=== PATIENT | male | born 1990 | race Caucasian/White ===

== ENCOUNTER 2016-12-12 09:32 | Emergency (ER) | payer MEDICAID ==
[~2016-12-12] VITALS: Ht 175.3 cm; Wt 86.0 kg
[2016-12-12 09:33] VITALS: BP 132/74; PULSE 86; RESP 20; TEMP 97.9; O2SAT 100
--- NOTE | 2016-12-12 10:12 | PD ---
HPI Chief Complaint: Chest Pain Time Seen by Provider: 10:01 Travel History International Travel<30 days: No Contact w/Intl Traveler<30days: No Traveled to known affect area: No History of Present Illness HPI The patient is a 26-year-old male who presents emergency department for chest pain. The patient notes a 2 week history of left-sided chest pain is located over the left breast and lower rib cage, sharp, intermittent, shooting, radiates to the posterior aspect of the left mid back. The patient states the pain is worse with inspiration, coughing, and occasional movements. Patient did have nausea and vomiting several days ago which has resolved. He does have a previous history of mononucleosis, denies any known history of chronic splenomegaly. The patient denies any trauma to the left chest wall. He denies any fever, chills, or sweats. The patient notes a possible history of borderline hypertension, however, denies any history of hyperlipidemia, diabetes , early family medical history for heart disease. The patient chews tobacco, however, does not smoke tobacco. Symptoms are moderate, worse with inspiration , coughing, and movement, and there are no current alleviating factors. PFSH Past Medical History Anxiety: Yes (PTSD) Hypertension: Yes Social History Alcohol Use: Yes (rare) Tobacco Use: No (just quit, smoked very rare) Substance Use: Yes (marijuana, last used in october ) Allergies-Medications (Allergen,Severity, Reaction): Coded Allergies: No Known Allergies (Unverified , 12/12/16) Reported Meds & Prescriptions Reported Meds & Active Scripts Active No Active Prescriptions or Reported Medications Review of Systems Except as stated in HPI: all other systems reviewed are Neg General / Constitutional: No: Fever Cardiovascular: Positive: Chest Pain or Discomfort Respiratory: Positive: Shortness of Breath, Pleuritic Pain (with inspiration), No: Cough Gastrointestinal: Positive: Nausea, Vomiting (2 days ago which has resolved) Skin: No Rash Physical Exam Narrative GENERAL: Awake, alert, 26-year-old male who appears his stated age and is in no acute respiratory distress. SKIN: Focused skin assessment warm/dry. HEAD: Atraumatic. Normocephalic. EYES: Pupils equal and round. No scleral icterus. No injection or drainage. ENT: No nasal bleeding or discharge. Mucous membranes pink and moist. NECK: Trachea midline. No JVD. CARDIOVASCULAR: Regular rate and rhythm. No murmur appreciated. Heart rate in the 80s. Palpation of the left lower chest wall reproduces symptoms. RESPIRATORY: No accessory muscle use. Clear to auscultation. Breath sounds equal bilaterally. GASTROINTESTINAL: Abdomen soft, mild tenderness over left upper quadrant, but no obvious splenomegaly. Back: No CVA tenderness. MUSCULOSKELETAL: No obvious deformities. No clubbing. No cyanosis. No edema. NEUROLOGICAL: Awake and alert. No obvious cranial nerve deficits. Motor grossly within normal limits. Normal speech. PSYCHIATRIC: Appropriate mood and affect; insight and judgment normal. Data Data Last Documented VS Vital Signs Date Time Temp Pulse Resp B/P Pulse Ox O2 Delivery O2 Flow Rate FiO2 12/12/16 11:14 20 12/12/16 10:17 100 Room Air 12/12/16 09:33 97.9 86 132/74 Orders Electrocardiogram (12/12/16 ) Electrocardiogram (12/12/16 10:07) Ckmb (Isoenzyme) Profile (12/12/16 10:07) Complete Blood Count With Diff (12/12/16 10:07) Comprehensive Metabolic Panel (12/12/16 10:07) D-Dimer (12/12/16 10:07) Magnesium (Mg) (12/12/16 10:07) Prothrombin Time / Inr (Pt) (12/12/16 10:07) Act Partial Throm Time (Ptt) (12/12/16 10:07) Troponin I (12/12/16 10:07) Lipase (12/12/16 10:07) Chest, Single Ap (12/12/16 10:07) Ecg Monitoring (12/12/16 10:07) Bilateral Bp Monitoring (12/12/16 10:07) Iv Access Insert/Monitor (12/12/16 10:07) Oximetry (12/12/16 10:07) Oxygen Administration (12/12/16 10:07) Morphine Inj (Morphine Inj) (12/12/16 10:15) Sodium Chloride 0.9% Flush (Ns Flush) (12/12/16 10:15) Sodium Chlorid 0.9% 500 Ml Inj (Ns 500 M (12/12/16 10:15) Ketorolac Inj (Toradol Inj) (12/12/16 10:15) Ondansetron Inj (Zofran Inj) (12/12/16 10:15) CKMB (12/12/16 10:20) CKMB% (12/12/16 10:20) Ct Pulmonary Angiogram (12/12/16 ) Iohexol 350 Inj (Omnipaque 350 Inj) (12/12/16 11:55) Labs Laboratory Tests Test 12/12/16 10:20 White Blood Count 11.1 TH/MM3 Red Blood Count 5.08 MIL/MM3 Hemoglobin 15.4 GM/DL Hematocrit 44.6 % Mean Corpuscular Volume 87.8 FL Mean Corpuscular Hemoglobin 30.4 PG Mean Corpuscular Hemoglobin 34.6 % Concent Red Cell Distribution Width 14.6 % Platelet Count 288 TH/MM3 Mean Platelet Volume 8.1 FL Neutrophils (%) (Auto) 68.7 % Lymphocytes (%) (Auto) 24.0 % Monocytes (%) (Auto) 5.9 % Eosinophils (%) (Auto) 0.8 % Basophils (%) (Auto) 0.6 % Neutrophils # (Auto) 7.6 TH/MM3 Lymphocytes # (Auto) 2.6 TH/MM3 Monocytes # (Auto) 0.7 TH/MM3 Eosinophils # (Auto) 0.1 TH/MM3 Basophils # (Auto) 0.1 TH/MM3 CBC Comment DIFF FINAL Differential Comment Prothrombin Time 10.4 SEC Prothromb Time International 0.9 RATIO Ratio Activated Partial 27.9 SEC Thromboplast Time D-Dimer Quantitative (PE/DVT) 0.96 MG/L FEU Sodium Level 138 MEQ/L Potassium Level 4.2 MEQ/L Chloride Level 101 MEQ/L Carbon Dioxide Level 25.9 MEQ/L Anion Gap 11 MEQ/L Blood Urea Nitrogen 14 MG/DL Creatinine 1.12 MG/DL Estimat Glomerular Filtration 81 ML/MIN Rate Random Glucose 80 MG/DL Calcium Level 9.5 MG/DL Magnesium Level 2.3 MG/DL Total Bilirubin 0.8 MG/DL Aspartate Amino Transf 22 U/L (AST/SGOT) Alanine Aminotransferase 28 U/L (ALT/SGPT) Alkaline Phosphatase 98 U/L Total Creatine Kinase 301 U/L Creatine Kinase MB 1.8 NG/ML Troponin I LESS THAN 0.02 NG/ML Total Protein 8.2 GM/DL Albumin 4.4 GM/DL Lipase 92 U/L [facility] Medical Decision Making Medical Screen Exam Complete: Yes Emergency Medical Condition: Yes Medical Record Reviewed: Yes Interpretation(s) EKG reveals sinus rhythm with sinus arrhythmia. Rate 67. No ischemic changes noted. Last Impressions Chest X-Ray 12/12/16 1007 Signed Impressions: Service Date/Time: Monday, December 12, 2016 10:19 - CONCLUSION: Normal examination. Keny Castro Jr., MD CT Angiography 12/12/16 0000 Signed Impressions: Service Date/Time: Monday, December 12, 2016 11:47 - CONCLUSION: Normal examination. Keny Castro Jr., MD Laboratory Tests Test 12/12/16 10:20 White Blood Count 11.1 TH/MM3 Red Blood Count 5.08 MIL/MM3 Hemoglobin 15.4 GM/DL Hematocrit 44.6 % Mean Corpuscular Volume 87.8 FL Mean Corpuscular Hemoglobin 30.4 PG Mean Corpuscular Hemoglobin 34.6 % Concent Red Cell Distribution Width 14.6 % Platelet Count 288 TH/MM3 Mean Platelet Volume 8.1 FL Neutrophils (%) (Auto) 68.7 % Lymphocytes (%) (Auto) 24.0 % Monocytes (%) (Auto) 5.9 % Eosinophils (%) (Auto) 0.8 % Basophils (%) (Auto) 0.6 % Neutrophils # (Auto) 7.6 TH/MM3 Lymphocytes # (Auto) 2.6 TH/MM3 Monocytes # (Auto) 0.7 TH/MM3 Eosinophils # (Auto) 0.1 TH/MM3 Basophils # (Auto) 0.1 TH/MM3 CBC Comment DIFF FINAL Differential Comment Prothrombin Time 10.4 SEC Prothromb Time International 0.9 RATIO Ratio Activated Partial 27.9 SEC Thromboplast Time D-Dimer Quantitative (PE/DVT) 0.96 MG/L FEU Sodium Level 138 MEQ/L Potassium Level 4.2 MEQ/L Chloride Level 101 MEQ/L Carbon Dioxide Level 25.9 MEQ/L Anion Gap 11 MEQ/L Blood Urea Nitrogen 14 MG/DL Creatinine 1.12 MG/DL Estimat Glomerular Filtration 81 ML/MIN Rate Random Glucose 80 MG/DL Calcium Level 9.5 MG/DL Magnesium Level 2.3 MG/DL Total Bilirubin 0.8 MG/DL Aspartate Amino Transf 22 U/L (AST/SGOT) Alanine Aminotransferase 28 U/L (ALT/SGPT) Alkaline Phosphatase 98 U/L Total Creatine Kinase 301 U/L Creatine Kinase MB 1.8 NG/ML Troponin I LESS THAN 0.02 NG/ML Total Protein 8.2 GM/DL Albumin 4.4 GM/DL Lipase 92 U/L Differential Diagnosis Differential diagnosis includes pleurisy, pleural effusion, pneumonia, pulmonary embolism, pancreatitis, acute coronary syndrome, pericarditis, myocarditis, splenomegaly Narrative Course IV was established, labs are drawn and sent, and the patient was placed on cardiac telemetry monitoring and continuous pulse oximetry monitoring. EKG was ordered and interpreted. Chest x-ray was obtained. The patient was administered morphine, Zofran, Toradol, and IV fluids. D-dimer was sent to lab. Chest x-ray was negative. D-dimer was positive at 0.96, therefore, CT pulmonary angiogram was ordered. CT pulmonary injury gram was negative, no evidence of pulmonary embolism. Patient's troponin is negative. EKG reveals no evidence of pericarditis. The patient appears to have atypical chest pain secondary to pleurisy. The patient we placed on a Medrol Dosepak and pain medications. He is advised to follow-up with his primary physician. Return if symptoms worsen or progress. Diagnosis Primary Impression: Atypical chest pain Additional Impression: Pleurisy Patient Instructions: Narcotic given in the ED, General Instructions Additional Instructions: Medications as directed. Follow-up with your primary physician. Return if symptoms worsen or progress. Please provide the patient a copy of his CT results, lab results, and chest x-ray results at discharge. Med/Other Pt SpecificInfo: Prescription(s) given Scripts Hydrocodone-Acetaminophen ([place])5-325 mg Tab1 Tab PO Q6H PRN (PAIN) #15 TAB Ref 0 Prov:Josh Leiva MD 12/12/16 Methylprednisolone Dosepak (Medrol Dosepak)4 Mg Dspk4 Mg PO DIRECTED #1 DSPK Ref 0 Per Pharmacist direction Prov:Josh Leiva MD 12/12/16 Disposition: DISCHARGE HOME Condition: Stable Josh Leiva MD December 12, 2016 10:12
[2016-12-12] MEDS ORDERED: ONDANSETRON HCL 4 MG/2 ML VIAL IV PUSH ONE (10:15)
[2016-12-12] MEDS ORDERED: KETOROLAC TROMETHAMINE 30 MG/ML (IVP) VIAL IV PUSH ONE (10:15)
[2016-12-12] MEDS ORDERED: MORPHINE SULFATE 4 MG/ML INJ IV PUSH ONE ×2 (10:15→12:30)
[2016-12-12] MEDS ORDERED: SODIUM CHLORIDE 0.9% FLUSH 10 ML FLUSH IVF PRN (10:15)
[2016-12-12] MEDS ORDERED: SODIUM CHLORID 0.9% 500 ML INJ 500 ML IV ONE (10:15)
[2016-12-12 10:17] VITALS: RESP 20; O2SAT 100
--- NOTE | 2016-12-12 10:32 | RADRPT ---
EXAM DATE/TIME: 12/12/2016 10:19 [facility] COMPARISON: No previous studies available for comparison. INDICATIONS : Short of breath with chest pains x2week. MEDICAL HISTORY : None. SURGICAL HISTORY : None. ENCOUNTER: Initial ACUITY: 2 weeks PAIN SCORE: 8/10 LOCATION: Bilateral chest FINDINGS: A single view of the chest demonstrates the lungs to be symmetrically aerated without evidence of mas s, infiltrate or effusion. The cardiomediastinal contours are unremarkable. Osseous structures are intact. CONCLUSION: Normal examination. Keny Castro Jr., MD on December 12, 2016 at 10:30 Board Certified Radiologist. This report was verified electronically.
[2016-12-12 10:49] LABS: AUTOMATED NEUTROPHIL # 7.6 TH/MM3 (1.8-7.7); BASOPHIL # 0.1 TH/MM3 (0-0.2); BASOPHIL % 0.6 % (0.0-2.0); EOSINOPHIL # 0.1 TH/MM3 (0-0.4); EOSINOPHIL % 0.8 % (0.0-4.0); HEMATOCRIT 44.6 % (39.0-51.0); HEMO FLAGS DIFF FINAL; LYMPHOCYTE # 2.6 TH/MM3 (1.0-4.8); MEAN CELL VOLUME 87.8 FL (80.0-100.0); MEAN CORPUSCULAR HEMOGLOBIN 30.4 PG (27.0-34.0); MEAN CORPUSCULAR HGB CONC 34.6 % (32.0-36.0); MONO % 5.9 % (0.0-8.0); NEUT % 68.7 % (16.0-70.0); PLATELET COUNT 288 TH/MM3 (150-450); RED BLOOD COUNT 5.08 MIL/MM3 (4.50-5.90); RED CELL DISTRIBUTION WIDTH 14.6 % (11.6-17.2); WHITE BLOOD COUNT 11.1 TH/MM3 (4.0-11.0)
[2016-12-12 11:03] LABS: APTT (PATIENT) 27.9 SEC (24.3-30.1); INTERNATIONAL NORMALIZED RATIO 0.9 RATIO; PROTHROMBIN TIME - PATIENT 10.4 SEC (9.8-11.6)
[2016-12-12 11:14] VITALS: RESP 20
[2016-12-12 11:14] LABS: ALKALINE PHOSPHATASE 98 U/L (45-117); ALT (GPT) 28 U/L (12-78); ANION GAP 11 MEQ/L (5-15); BICARBONATE 25.9 MEQ/L (21.0-32.0); BLOOD UREA NITROGEN 14 MG/DL (7-18); CHLORIDE 101 MEQ/L (98-107); CREATINE KINASE 301 U/L (39-308); GLOMERULAR FILTRATION RATE 81 ML/MIN (>89); MAGNESIUM 2.3 MG/DL (1.5-2.5); POTASSIUM 4.2 MEQ/L (3.5-5.1); SODIUM (NA) 138 MEQ/L (136-145); TOTAL BILIRUBIN ADULT 0.8 MG/DL (0.2-1.0)
[2016-12-12 11:38] LABS: AST (GOT) 22 U/L (15-37); CKMB 1.8 NG/ML (0.5-3.6)
[2016-12-12] MEDS ORDERED: IOHEXOL 350 MG/ML 10 ML VIAL (for RAD DIAG) IV ONE (11:55)
--- NOTE | 2016-12-12 12:08 | RADRPT ---
EXAM DATE/TIME: 12/12/2016 11:47 [facility] COMPARISON: No previous studies available for comparison. INDICATIONS : Pleuritic chest pain and elevated D-dimer. IV CONTRAST: 75 cc Omnipaque 350 (iohexol) IV RADIATION DOSE: 23.89 CTDIvol (mGy) MEDICAL HISTORY : Hypertension. SURGICAL HISTORY : None. ENCOUNTER: Initial ACUITY: 2 weeks PAIN SCALE: 4/10 LOCATION: Left chest TECHNIQUE: Volumetric scanning of the chest was performed using a pulmonary embolism protocol MIP images were re constructed. Using automated exposure control and adjustment of the mA and/or kV according to patien t size, radiation dose was kept as low as reasonably achievable to obtain optimal diagnostic quality images. FINDINGS: PULMONARY ARTERIES: No filling defects are seen in the pulmonary arteries through the segmental level. LUNGS: There is no consolidation or pneumothorax . No concerning pulmonary nodule is visualized. PLEURAE: There is no pleural thickening or pleural effusion. MEDIASTINUM: There is good visualization of the great vessels of the middle mediastinum. No evidence of mediastin al or hilar adenopathy/mass. MUSCULOSKELETAL: Within normal limits for patient age. MISCELLANEOUS: The visualized upper abdominal organs demonstrate no acute abnormality. CONCLUSION: Normal examination. Keny Castro Jr., MD on December 12, 2016 at 12:03 Board Certified Radiologist. This report was verified electronically.
[2016-12-12] MEDS ORDERED: MEDR4PAK PO (12:23)
[2016-12-12] MEDS ORDERED: NORC5TAB PO (12:23)
--- NOTE | 2016-12-12 16:38 | EKG ---
Date Performed: 12/12/2016 Time Performed: 09:58:43 PTAGE: 26 years EKG: Sinus rhythm WITH MARKED SINUS ARRHYTHMIA BORDERLINE ECG NO PREVIOUS TRACING DOCTOR: Mike Stevens Interpretating Date/Time 12/12/2016 16:36:13
== END 2016-12-12 13:12 | disposition home or self-care (01) ==
LOC: NEPD 09:32
DX: R07.89 Other chest pain (principal); R09.1 Pleurisy; R94.31 Abnormal electrocardiogram [ECG] [EKG]; I10 Essential (primary) hypertension; R06.02 Shortness of breath; F12.90 Cannabis use, unspecified, uncomplicated; F17.220 Nicotine dependence, chewing tobacco, uncomplicated
CPT/HCPCS: 71010; 71275; 80053; 82550; 82552; 83690; 83735; 84484; 85025; 85379; 85610; 85730; 93005; 96361; 96374; 96375; 96376; 99285; J1885; J2270; J2405; J7040; Q9967